=== PATIENT | male | born 1995 | race Caucasian/White ===

== ENCOUNTER 2017-03-02 16:37 | Emergency (ER) | payer OTHER ==
[~2017-03-02] VITALS: Ht 152.4 cm; Wt 95.0 kg
[2017-03-02 16:38] VITALS: BP 117/59; PULSE 64; RESP 16; TEMP 98.4; O2SAT 98
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
[2017-03-02] MEDS ORDERED: IBUP800T23 PO (17:17)
[2017-03-02] MEDS ORDERED: CYCL5TAB PO (17:17)
[2017-03-02 17:24] VITALS: BP 110/66; TEMP 97.9
== END 2017-03-02 17:24 | disposition home or self-care (01) ==
LOC: NEPK 16:37
DX: S39.012A Strain of muscle, fascia and tendon of lower back, initial encounter (principal); V43.62XA Car passenger injured in collision with other type car in traffic accident, initial encounter
CPT/HCPCS: 99283